=== PATIENT | male | born 1950 ===

== ENCOUNTER 2025-04-16 10:38 | Emergency (ER) | payer OTHER ==
[~2025-04-16] VITALS: Ht 167.6 cm; Wt 73.9 kg
[2025-04-16] MEDS ORDERED: Ondansetron Hydrochloride 4 MG/2 ML VIAL IV ONE (10:45)
[2025-04-16] MEDS ORDERED: FAMOTIDINE 50 ML IV ONE (10:50)
[2025-04-16 11:10] LABS: BASO # 0.0 10*3/uL (0.0-0.1); BASO % 0.4 % (0.0-1.0); EOS # 0.1 10*3/uL (0.0-0.4); EOS % 1.3 % (1.0-4.0); MEAN CELL VOLUME 93.3 fl (80.0-94.0); MEAN CORPUSCULAR HGB 29.9 pg (27.0-31.0); MEAN PLATELET VOLUME 9.3 fl (9.6-12.3); MONO # 0.8 10*3/uL (0.1-1.0); MONO % 8.7 % (3.0-9.0); NEUT # 6.6 10*3/uL (2.3-7.9); NEUT % 71.7 % (47.0-73.0); NUCLEATED RED BLOOD CELL 0.0 % (0.0-0.0); NUCLEATED RED BLOOD CELL 0.0 10*3/uL (0.0-0.0); PLATELET COUNT AUTOMATED 333 10*3/uL (130-400); RED CELL DISTRI WIDTH 12.2 % (0-14.5)
[2025-04-16 11:35] LABS: BUN 19 mg/dl (9-23)
[2025-04-16] MEDS ORDERED: IOHEXOL 350 MG/ML 100 ML VIAL IV ONE ×2 (11:50→12:11)
[2025-04-16] MEDS ORDERED: SODIUM CHLORIDE 0.9% 100 ML BAG IV ONE (11:50)
[2025-04-16] MEDS ORDERED: SODIUM CHLORIDE 0.9% 100 ML IV ONE (12:12)
[2025-04-16] MEDS ORDERED: PEPCID20 MG PO (13:39)
== END 2025-04-16 17:10 | disposition home or self-care (01) ==
LOC: ED 10:38
PROVIDERS: Emergency Medicine
DX: K20.90 Esophagitis, unspecified without bleeding (principal); M54.50 Low back pain, unspecified; Z88.8 Allergy status to other drugs, medicaments and biological substances